=== PATIENT | female | born 1985 | race Asian ===

== ENCOUNTER → 2021-11-09 | Outpatient (CLI) | payer BC ==
--- NOTE | 2021-11-09 07:59 | US ---
EXAMINATION TYPE: US abdomen complete DATE OF EXAM: 11/09/2021 COMPARISON: NONE CLINICAL HISTORY: 36-year-old female R10.11 RUQ pain, K21.9 GERD. TECHNIQUE: Multiple sonographic images of the abdomen are obtained. FINDINGS: EXAM MEASUREMENTS: Liver Length: 15.0 cm Gallbladder Wall: 0.3 cm CBD: 0.4 cm Spleen: 9.2 cm Right Kidney: 11.0 x 5.1 x 4.2 cm Left Kidney: 11.6 x 5.7 x 5.1 cm Pancreas: wnl Liver: wnl Gallbladder: Borderline wall thickening but collapsed. There is 6 mm calculus is noted. There is karl e focal nodular fundal thickening up to 11 mm that could reflect adenomyomatosis and should be reasse ssed at follow-up. Evidence for sonographic Tapia's sign: No CBD: wnl Spleen: wnl Kidney: No hydronephrosis. Upper IVC: wnl Abd Aorta: wnl IMPRESSION: 1. Some focal 1.1 cm nodular thickening at the fundus of the gallbladder contains a punctate calcific ation. This could represent a focus of adenomyomatosis. There is six-month follow-up recommended to e nsure stability. 2. Gallbladder is collapsed with a 6 mm gallstone. 3. No biliary ductal dilatation.
== END | disposition home or self-care (01) ==
LOC: RADUSWWP 06:55
PROVIDERS: ATTEND Family Medicine
DX: K80.20 Calculus of gallbladder without cholecystitis without obstruction (principal); K21.9 Gastro-esophageal reflux disease without esophagitis; K82.8 Other specified diseases of gallbladder
CPT/HCPCS: 76700

== ENCOUNTER 2022-03-04 10:57 | Day surgery (SDC) | payer BC ==
[2022-03-02 11:38] VITALS: BMI 22.0
[~2022-03-04 10:57] MED LIST: ACETAMINOPHEN TAB 500 MG TAB PO PRN; DEXAMETHASONE SOD PHOSPHATE 4 MG/ML 1 ML VIAL IV ONE; HEPARIN SODIUM,PORCINE/PF 5,000 UNIT/0.5 ML SYRINGE SQ PRN; HYDROmorphone 0.5 MG/0.5 ML SYRINGE IVP PRN; LACTATED RINGERS 1,000 ML IV SCH; ONDANSETRON 4 MG/2 ML VIAL IVP ONE
[2022-03-04 11:38] VITALS: RESP 16; TEMP 99.3
--- NOTE | 2022-03-04 12:31 | P.GSHP ---
History of Present Illness H&P Date: 03/04/22 Chief Complaint: Chronic cholecystitis 37-year-old female with intermittent right upper quadrant pain that radiates to the back and shoulder. She has not had a bad episode for a few months. Most recent liver enzymes normal. No change in the color of her skin urine or stool. Ultrasound showed gallstones with a borderline gallbladder wall thickening. Past Medical History Past Medical History: GERD/Reflux History of Any Multi-Drug Resistant Organisms: None Reported Past Surgical History: Section Additional Past Surgical History / Comment(s): Section X1, surgery for Endometriosis. Past Anesthesia/Blood Transfusion Reactions: No Reported Reaction Past Psychological History: No Psychological Hx Reported Smoking Status: Never smoker Past Alcohol Use History: None Reported Past Drug Use History: None Reported - Past Family History Mother Family Medical History: No Reported History Medications and Allergies Home Medications Medication Instructions Recorded Confirmed Type Multivitamins, Thera [Multivitamin 1 tab PO DAILY 03/02/22 03/02/22 History (formulary)] Allergies Allergy/AdvReac Type Severity Reaction Status Date / Time latex Allergy Rash/Hives Verified 03/02/22 11:27 Surgical - Exam Vital Signs Temp Pulse Resp BP Pulse Ox 99.3 F 68 16 111/53 100 03/04/22 11:37 03/04/22 11:37 03/04/22 11:37 03/04/22 11:37 03/04/22 11:37 Physical exam: General: Well-developed, well-nourished HEENT: Normocephalic, sclerae nonicteric Abdomen: Nontender, nondistended Extremities: No edema Neuro: Alert and oriented Assessment and Plan (1) Chronic cholecystitis Narrative/Plan: Will proceed with laparoscopic cholecystectomy at this time. Risks of bleeding, infection, bile leak, bile duct injury, retained common bile duct stone, trocar injury, conversion to an open procedure, hernia, anesthesia related complications were reviewed. The patient understands and wishes to proceed. Current Visit: Yes Status: Acute Code(s): K81.1 - CHRONIC CHOLECYSTITIS SNOMED Code(s): 96488156
[2022-03-04] MEDS ORDERED: MIDAZOLAM 2 MG/2 ML VIAL ONE (12:48)
[2022-03-04] MEDS ORDERED: fentaNYL (PF) 50 MCG/ML 2 ML AMP ONE (12:48)
[2022-03-04] MEDS ORDERED: LIDOCAINE 1% INJ 10MG/ML (20 ML MDV) ONE (12:48)
[2022-03-04] MEDS ORDERED: PROPOFOL 10 MG/ML 20 ML VIAL IV ONE (12:48)
[2022-03-04] MEDS ORDERED: GLYCOPYRROLATE 0.2 MG/ML 2 ML VIAL ONE (12:48)
[2022-03-04] MEDS ORDERED: SUCCINYLCHOLINE CHLORIDE 100 MG/5 ML SYR IV ONE (12:48)
[2022-03-04] MEDS ORDERED: NEOSTIGMINE 1 MG/ML 10 ML VIAL ONE (12:48)
[2022-03-04] MEDS ORDERED: SODIUM CHLORIDE 0.9% 100 ML with ceFAZolin 1,000 MG IV ONE ×2 (12:53)
[2022-03-04] MEDS ORDERED: BUPIVACAINE (PF) 0.25% 30 ML VIAL SQ ONE ×2 (13:08→13:12)
[2022-03-04] MEDS ORDERED: traMADol 50 MG TAB PO PRN (13:46)
--- NOTE | 2022-03-04 13:47 | P.OP ---
Date of Procedure: 03/04/22 Procedure(s) Performed: PREOPERATIVE DIAGNOSIS: Chronic cholecystitis POSTOPERATIVE DIAGNOSIS: Same PROCEDURE: Laparoscopic cholecystectomy SURGEON: Luz Elena EBL: Minimal see anesthesia record ANESTHESIA: Gen. COMPLICATIONS: None OPERATIVE PROCEDURE: The patient was brought and placed on the operating room table in the supine position. The patient was placed under general anesthesia at that time. The abdomen was prepped and draped in the usual sterile fashion. A small vertical infraumbilical incision was made. The fascia was grasped with the Amandeep forceps. The fascia was retracted anteriorly. The Veress needle was advanced into the peritoneal cavity. The saline drop test was normal. Insufflation took place up to 15 mmHg. A 5 mm optical trocar was advanced and the peritoneal cavity. 2 additional 5 mm trochars were placed in the right upper quadrant under direct visualization. A 12 mm trocar was advanced into the epigastric incision site. The gallbladder was retracted superiorly and laterally. The peritoneum overlying the infundibulum was bluntly dissected. The patient's cystic duct was visualized. The junction between the cystic duct common and hepatic duct was identified. The critical view of safety was achieved after blunt dissection. The cystic duct was then divided after placement of 3 12 mm clips on the patient's side and one on the specimen side. The cystic artery was identified and clipped as well. A small vessel was seen along the gallbladder fossa and clipped as well. The gallbladder was then removed from the liver bed using electrocautery. The gallbladder was then removed from the epigastric trocar site with an Endo Catch bag. The gallbladder fossa was irrigated with saline. There was no evidence of any bleeding or biliary drainage seen. The fascia at the 12 millimeter site was closed using a Samuel-Audelia 0 Vicryl stitch. The trochars were then removed. The skin at all 4 sites was closed using a 4-0 Monocryl stitch. Skin glue was utilized on the incision sites. At the end of this procedure the sponge and needle counts were correct. DISPOSITION: Stable to the recovery room
[2022-03-04] MEDS ORDERED: KETOROLAC 15 MG/ML 1 ML VIAL IVP ONE (14:21)
[2022-03-04] MEDS ORDERED: fentaNYL (PF) 50 MCG/ML 2 ML AMP IVP ONE (14:30)
[2022-03-04] MEDS ORDERED: traMADol 50 MG TAB PO ONE (15:17)
[2022-03-04] MEDS ORDERED: IBUPROFEN 600 MG TAB PO SCH (16:00)
[2022-03-04 16:03] VITALS: BP 102/59; PULSE 75
[2022-03-04] MEDS ORDERED: ACETAMINOPHEN TAB 325 MG TAB PO SCH (18:00)
== END 2022-03-04 16:33 | disposition home or self-care (01) ==
LOC: OR 10:57
PROVIDERS: ATTEND Surgery
DX: K81.1 Chronic cholecystitis (principal); K21.9 Gastro-esophageal reflux disease without esophagitis; Z91.040 Latex allergy status
CPT/HCPCS: 47562; 81025; 88304; J2250; J1100; J2710; J2405; J0690; J2001; J3010; J1885; J0330; J2704; J1170; J1644